=== PATIENT | male | born 1995 | race Caucasian/White ===

== ENCOUNTER 2018-08-09 11:50 | Emergency (ER) | payer OTHER, BC ==
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
--- NOTE | 2018-08-09 12:40 | CT ---
Head CT Technique: Multiple axial sections through the brain were obtained. Intravenous contrast was not utilized. Comparison: No prior intracranial imaging is available. Findings: Ventricles along with basal cisterns and sulci over convexities are within normal limits. Slightly prominent cisterna magna is seen which is a normal variant. No evidence of intracranial hemorrhage. No midline shift or mass effect is seen. Bone window settings were reviewed which shows no acute calvarial abnormality. Visualized sinuses are clear. Impression: 1. Nothing acute is appreciated on noncontrast head CT exam. Diagnostic code #2
== END 2018-08-09 13:07 | disposition home or self-care (01) ==
LOC: JD.ED 11:50
DX: S06.0X0A Concussion without loss of consciousness, initial encounter (principal); S30.0XXA Contusion of lower back and pelvis, initial encounter; S70.12XA Contusion of left thigh, initial encounter; V89.2XXA Person injured in unspecified motor-vehicle accident, traffic, initial encounter
CPT/HCPCS: 70450; 70450-26; 99282; 99284-25

== ENCOUNTER 2019-05-13 19:41 | Emergency (ER) | payer BC ==
--- NOTE | 2019-05-13 20:02 | EDM.PDOC ---
ED HPI GENERAL MEDICAL PROBLEM - General Chief Complaint: Lower Extremity Injury/Pain Stated Complaint: RIGHT LEG HURTS Time Seen by Provider: 05/13/19 19:59 - History of Present Illness INITIAL COMMENTS - FREE TEXT/NARRATIVE: 23-year-old male presents emergency room with right leg pain. Is really got sore Monday. Monday he was climbing into a bunk on a trailer and felt some unusual but didn't pay much attention to it when he awoke Monday he seemed to have some pretty significant discomfort on the inside of his leg from below to just above his knee. Patient has not had problems with blood clots in the past no family history of deep vein thrombosis or PE. The patient has not had the knee problems in the past. Right Leg Pain Score (Numeric/FACES): 6 - Related Data Allergies Allergy/AdvReac Type Severity Reaction Status Date / Time No Known Allergies Allergy Verified 05/13/19 19:49 Home Meds: Home Meds Naproxen Sodium 550 mg PO Q12H #30 tablet 05/13/19 [Rx] Past Medical History - Past Health History Medical/Surgical History: Denies Medical/Surgical History Musculoskeletal History: Reports: Other (See Below) Other Musculoskeletal History: r thumb surgery - Past Surgical History HEENT Surgical History: Reports: Adenoidectomy, Oral Surgery, Tonsillectomy Social & Family History - Tobacco Use Smoking Status *Q: Never Smoker Second Hand Smoke Exposure: No - Caffeine Use Caffeine Use: Reports: Coffee, Soda - Recreational Drug Use Recreational Drug Use: No - Living Situation & Occupation Living situation: Reports: Single Occupation: Employed Review of Systems - Review of Systems Review Of Systems: See Below Constitutional: Reports: No Symptoms Respiratory: Reports: No Symptoms Cardiovascular: Reports: No Symptoms GI/Abdominal: Reports: No Symptoms ED EXAM, GENERAL - Physical Exam Exam: See Below Exam Limited By: No Limitations General Appearance: Alert, No Apparent Distress Respiratory/Chest: No Respiratory Distress, Lungs Clear, Normal Breath Sounds Cardiovascular: Normal Peripheral Pulses, Regular Rate, Rhythm, No Edema GI/Abdominal: Normal Bowel Sounds, Soft, Non-Tender Extremities: Other (Semination of the right leg shows swelling around the knee no significant redness no warmth noted. His tenderness is on the medial aspect over the medial collateral ligament of the knee the lower two thirds of the lower leg are nontender with palpation and the upper two thirds of the thigh is nontender with palpation. The tenderness seems to be localized to the medial aspect. Knee examination shows an intact ACL the MCL is very tender especially with a little bit of strain but because of the discomfort I couldn't adequately test for laxity meniscal testing is restricted because of pain LCL appears to be okay) Course - Vital Signs Last Recorded V/S: Last Vital Signs Temp 36.1 C 05/13/19 19:49 Pulse 104 H 05/13/19 19:49 Resp 15 05/13/19 19:49 BP 155/92 H 05/13/19 19:49 Pulse Ox 96 05/13/19 19:49 - Orders/Labs/Meds Orders: Active Orders 24 hr Category Date Time Status Knee 3V Rt [CR] Stat Exams 05/13/19 20:18 Taken Labs: Laboratory Tests 05/13/19 Range/Units 20:27 D-Dimer, Quantitative < 0.19 L (0.19-0.50) mg/L - Re-Assessments/Exams Free Text/Narrative Re-Assessment/Exam: 05/13/19 20:46 X-ray examination of the knee shows no acute fracture dislocations Some fluid along the medial aspect the knee 05/13/19 21:25 D-dimer negative we'll discharge patient with crutches he will not tolerate a knee immobilizer as he cannot fully extend his knee Departure - Departure Time of Disposition: 21:26 Disposition: Home, Self-Care 01 Clinical Impression: Medial collateral ligament sprain of knee - Discharge Information Prescriptions: Naproxen Sodium 550 mg PO Q12H #30 tablet Referrals: PCP,None [Primary Care Provider] - Bandar Lancaster MD [Physician] - Forms: ED Department Discharge Additional Instructions: Return to the emergency room with any questions problems or worsening symptoms. Use the crutches to help to get around. Take the Naprosyn twice daily with meals. Use the hydrocodone for pain one or 2 every 4-6 hours as needed your given #20 from the machine out in the waiting room. After using this medication allow yourself 12 hours before driving or returning to work. Follow-up with Dr. Lancaster as they can work you in. Call in the morning to schedule an appointment. - My Orders Last 24 Hours: My Active Orders 05/13/19 20:18 Knee 3V Rt [CR] Stat - Assessment/Plan Last 24 Hours: My Active Orders 05/13/19 20:18 Knee 3V Rt [CR] Stat
--- NOTE | 2019-05-14 07:06 | CR ---
Right knee: AP, lateral and sunrise patellar views of the right knee were obtained. Mild medial joint space narrowing is seen. Lateral joint space is preserved. Patellofemoral joint is maintained. Joint effusion is seen. Impression: 1. Mild medial joint space narrowing and joint effusion. 2. No additional abnormality is appreciated on right knee exam. Diagnostic code #3
== END 2019-05-13 21:55 | disposition home or self-care (01) ==
LOC: JD.ED 19:41
DX: S83.411A Sprain of medial collateral ligament of right knee, initial encounter (principal); X50.9XXA Other and unspecified overexertion or strenuous movements or postures, initial encounter; Y93.39 Activity, other involving climbing, rappelling and jumping off
CPT/HCPCS: 36415; 73562-26-RT; 73562-RT; 85379; 99283; 99283-25

== ENCOUNTER 2021-01-19 12:43 | Emergency (ER) | payer BC ==
[2021-01-19] MEDS ORDERED: Lidocaine 1% 10 ML MDV INJECT ONE (15:23)
--- NOTE | 2021-01-19 15:24 | EDM.PDOC ---
ED HPI GENERAL MEDICAL PROBLEM - General Chief Complaint: Upper Extremity Injury/Pain Stated Complaint: RT ELBOW SWELLING Time Seen by Provider: 01/19/21 15:15 Source of Information: Reports: Patient History Limitations: Reports: No Limitations - History of Present Illness INITIAL COMMENTS - FREE TEXT/NARRATIVE: 25-year-old male presents to the ED with continuous swelling of his right olecranon bursa and increasing pain as of late. He states it started in late October or early November he fell and banged on a concrete surface. Patient has been taking anti-inflammatories intermittently for pain relief. States it somewhat better in the mornings and worse by the end of the day when he is finished work. He is also aware of an area that feels like a chip or broken piece floating around in the bursa which is exquisitely painful when compressed on a hard surface such as a desk etc. Onset: Other Onset Date: 11/20/20 (He believes his initial injury was around November 20 but he cannot remember for sure) Duration: Week(s):, Chronic, Getting Worse (Increased pain and swelling as of late. Denies reinjuring the area.) Location: Reports: Upper Extremity, Right (Marked swelling over the right elbow for over 2 months.) Quality: Reports: Ache, Throbbing, Other (Occasional sharp stabbing pain if he puts his elbow on the wrong surface.) Severity: Moderate Improves with: Reports: Rest Worsens with: Reports: None Context: Reports: Trauma (Suffered a fall in late October early November and injured his right elbow. Subsequently developed atraumatic olecranon effusion which has been persistent ever since that time.). 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 [No Known Home Meds] 01/19/21 [History] Past Medical History - Past Health History Medical/Surgical History: Denies Medical/Surgical History Musculoskeletal History: Reports: Fracture Other Musculoskeletal History: r thumb surgery - Past Surgical History HEENT Surgical History: Reports: Adenoidectomy, Oral Surgery, Tonsillectomy Musculoskeletal Surgical History: Reports: Other (See Below) Other Musculoskeletal Surgeries/Procedures:: r thumb surgery Social & Family History - Tobacco Use Tobacco Use Status *Q: Never Tobacco User - Caffeine Use Caffeine Use: Reports: Coffee, Soda - Recreational Drug Use Recreational Drug Use: No - Living Situation & Occupation Living situation: Reports: Single Occupation: Employed Review of Systems - Review of Systems Review Of Systems: See Below Constitutional: Reports: No Symptoms Eyes: Reports: No Symptoms Ears: Reports: No Symptoms Nose: Reports: No Symptoms Mouth/Throat: Reports: No Symptoms Respiratory: Reports: No Symptoms Cardiovascular: Reports: No Symptoms GI/Abdominal: Reports: No Symptoms Genitourinary: Reports: No Symptoms Musculoskeletal: Reports: Other (Chronic swelling right elbow for couple of months.) Skin: Reports: No Symptoms Neurological: Reports: No Symptoms Psychiatric: Reports: No Symptoms ED EXAM, GENERAL - Physical Exam Exam: See Below Exam Limited By: No Limitations General Appearance: Alert, WD/WN, No Apparent Distress, Other Extremities: Other (On examination of the right elbow patient has an obvious fairly large olecranon bursa likely traumatic in origin. I cannot palpate any floating debris within the bursa.) Neurological: Alert, Oriented, CN II-XII Intact, Normal Cognition, Normal Gait Psychiatric: Normal Affect, Normal Mood Course - Vital Signs Last Recorded V/S: Last Vital Signs Temp 36.4 C 01/19/21 13:03 Pulse 65 01/19/21 13:03 Resp 16 01/19/21 13:03 BP 129/91 H 01/19/21 13:03 Pulse Ox 99 01/19/21 13:03 - Orders/Labs/Meds Meds: Medications Discontinued Medications Generic Name Dose Route Start Last Admin Trade Name Freq PRN Reason Stop Dose Admin Lidocaine HCl 10 ml 01/19/21 15:23 01/19/21 16:26 Lidocaine 1% 10 Ml Mdv INJECT 01/19/21 15:24 10 ml ONETIME ONE Administration Triamcinolone Acetonide 40 mg 01/19/21 16:00 01/19/21 16:26 Triamcinolone Acetonide 40 Mg/Ml 1 Ml Sdv INJECT 01/19/21 16:01 40 mg ONETIME ONE Administration - Radiology Interpretation Free Text/Narrative:: 25-year-old male presents to the ED with a chronic swelling of his right elbow since fall either late October or early November. He believes it was around November 20. He members tripping and falling and landing on concrete surface on his right elbow. Subsequently developed swelling in this area which is never dissipated. States recently it seems to be getting more painful he is aware of floating- like debris within the right olecranon bursa that is painful. Patient is questioning a chip fracture. Patient reassured that most the time this is actually debris from bursal scarring but is very tender to touch due to nerve supply to the bursa. Patient has been taking Tylenol and Motrin on intermittent basis for the bursa but feels it is getting larger as of late. He feels it might be aggravated by his work which sometimes rib involves repetitive use of his arms. On examination he has a fairly large right olecranon bursitis. Nurses have ordered an x-ray of the right elbow which proved to be negative for any bony abnormalities of the olecranon process or true fluid within the joint. Plan to anesthetize the area with 1% lidocaine and remove the fluid with an 18- gauge needle and then inject 40 mg of Kenalog into the bursa. - Re-Assessments/Exams Free Text/Narrative Re-Assessment/Exam: 01/19/21 16:15: Anesthetized the right olecranon bursa with 1% lidocaine. Removed approximately 35 mils of sanguinous material from the right olecranon bursa. Was able to instill 40 mg of Kenalog into the bursa. Patient tolerated the procedure very well. Band-Aid applied over injection site. He will follow- up if recurrence of the bursitis occurs in 3 to 4 weeks time. Departure - Departure Time of Disposition: 16:15 Disposition: Home, Self-Care 01 Condition: Fair Clinical Impression: Olecranon bursitis of right elbow - Discharge Information *PRESCRIPTION DRUG MONITORING PROGRAM REVIEWED*: Not Applicable *COPY OF PRESCRIPTION DRUG MONITORING REPORT IN PATIENT GIOVANNY: Not Applicable Instructions: Elbow Bursitis, [id number] Referrals: PCP,None [Primary Care Provider] - Forms: ED Department Discharge Additional Instructions: Evaluation in the emergency room today in regards to chronic swelling of your right elbow involving the olecranon bursa. You do remember falling and banging up your elbow prior to the development of the swelling of your right elbow. An x-ray of the right elbow was carried out but is within normal limits showing no bony injury. The painful area that you feel is actually portions of the bursa that usually are scarred together and feel like a floating lump within the fluid. It also has many nerve endings and it is not very tender to touch or to bang on a hard surface usually for about a year. In the ED we removed approximately 35 mils of sanguinous or bloody fluid indicating this was definitely a traumatic effusion. Injected the elbow with 40 mg of Kenalog to reduce the inflammation and fluid production by the bursa. Elbow may become more painful over the next 12 to 24 hours requiring Motrin 600 mg every 6 hours. Usually over the next 72 hours swelling and pain start to improve dramatically. You would need review if the elbow swells up again in approximately 3 weeks time. Sepsis Event Note (ED) - Evaluation Sepsis Screening Result: No Definite Risk - Focused Exam Vital Signs: Vital Signs Temp Pulse Resp BP Pulse Ox 01/19/21 13:03 36.4 C 65 16 129/91 H 99 Arthrocentesis - Arthrocentesis Arthrocentesis Indication: fluid aspiration, other (Medic effusion right olecranon bursa) Location: right Prep: CDC/MBT Guidelines, Sterile Drapes, Chlorhexidine Local anesthesia: lidocaine 1 % Local anesthesia volume: 3cc Needle: 18 gauge Fluid: bloody (Bloody aspirate) Volume of fluid removed (mls): 35 Medication Instilled: lidocaine mls: (3), cortisone mgs: (40 mg of Kenalog instilled into the bursa.) Complications: No Dressing: other (Ended)
--- NOTE | 2021-01-19 15:37 | CR ---
Right elbow: 4 views of the right elbow were obtained. Comparison: No prior elbow study is available. Diffuse soft tissue swelling is noted posteriorly most likely within the olecranon bursa. Joint spaces are preserved. No acute fracture or other bony abnormality is appreciated. Impression: 1. Posterior soft tissue swelling most likely representing fluid within a distended olecranon bursa. 2. No acute osseous abnormality is appreciated. Diagnostic code #3
[2021-01-19] MEDS ORDERED: Triamcinolone Acetonide 40 MG/ML 1 ML SDV INJECT ONE (16:00)
== END 2021-01-19 16:26 | disposition home or self-care (01) ==
LOC: JD.ED 12:43
DX: M70.21 Olecranon bursitis, right elbow (principal)
CPT/HCPCS: 20610; 73080; 99283; J3301

== ENCOUNTER 2024-02-17 16:48 | Emergency (ER) | payer BC ==
[2024-02-17] MEDS: Ketorolac 60 MG/2 ML SDV IM ONE (20:53)
== END 2024-02-17 21:09 | disposition home or self-care (01) ==
LOC: JD.ED 16:48
DX: M25.561 Pain in right knee (principal)
CPT/HCPCS: 73564; 96372; 99283; J1885; 99282

== ENCOUNTER 2024-08-28 03:28 | Observation (INO) | payer BC, OTHER ==
[2024-08-28] MEDS ORDERED: Sodium Chloride 0.9% 10 ML Syringe FLUSH PRN (03:33)
[2024-08-28] MEDS: HYDROmorphone 0.5 MG/0.5 ML Syringe ONE ×2 (03:35→04:31)
[2024-08-28 03:43] LABS: BASOPHILS ABSOLUTE AUTO 0.1 K/mm3 (0.0-0.2); BASOPHILS PERCENT AUTO 0.4 % (0.0-1.0); EOSINOPHILS ABSOLUTE AUTO 0.2 K/mm3 (0.0-0.4); EOSINOPHILS PERCENT AUTO 1.3 % (0.0-6.0); HEMATOCRIT 44.7 % (42.0-52.0); IMMATURE GRAN ABSOLUTE AUTO 0.03 K/mm3 (0.00-0.05); IMMATURE GRAN PERCENT AUTO 0.2 % (0.0-0.4); LYMPHOCYTES ABSOLUTE AUTO 4.5 K/mm3 (1.0-4.8); LYMPHOCYTES PERCENT AUTO 37.6 % (24.0-44.0); MEAN CORPUSCULAR HEMOGLOBIN 28.8 pg (28.0-32.0); MEAN CORPUSCULAR HGB CONC 33.6 g/dl (32.0-36.0); MEAN CORPUSCULAR VOLUME 85.8 fl (83.0-99.0); MEAN PLATELET VOLUME 11.3 fl (9.4-12.4); MONOCYTES ABSOLUTE AUTO 0.6 K/mm3 (0.0-0.8); MONOCYTES PERCENT AUTO 5.3 % (0.0-8.0); NEUTROPHILS ABSOLUTE AUTO 6.6 K/mm3 (1.8-7.7); NEUTROPHILS PERCENT AUTO 55.2 % (41.0-71.0); PLATELET COUNT,PLT 246 K/mm3 (150-400); RED BLOOD CELL COUNT 5.21 M/mm3 (4.52-5.90); WHITE BLOOD CELL COUNT,WBC 12.03 K/mm3 (3.9-11.3)
[2024-08-28 04:00] LABS: INR 1.08; PROTHROMBIN TIME 11.4 SECONDS (9.7-12.0)
[2024-08-28 04:01] LABS: PTT,PARTIAL THROMBOPLSTIN TIME 24.8 SECONDS (21.7-31.4)
[2024-08-28 04:08] LABS: A/G RATIO 1.1 (1-2); ALBUMIN 4.1 g/dl (3.4-5.0); ANION GAP 13.7 (5-15); BILIRUBIN TOTAL 0.3 mg/dL (0.2-1.0); BUN/CREATININE RATIO 13.6 (14-18); CALCIUM 8.7 mg/dL (8.5-10.1); CREATININE 1.1 mg/dL (0.7-1.3); EST CRCL DRUG DOSING (CG) 107.78 mL/min; ETHANOL BLOOD MEDICAL 0.24 gm% (0.00); POTASSIUM,K 3.7 mEq/L (3.5-5.1); PROTEIN TOTAL,TP 7.7 g/dl (6.4-8.2)
[2024-08-28] MEDS: LORazepam 2 MG/ML SDV IVPUSH ONE ×2 (04:21→05:10)
[2024-08-28] MEDS: LORazepam 2 MG/ML SDV ONE (04:22)
[2024-08-28] MEDS: Iopamidol 612 MG/ML 100 ML Bottle IVPUSH ONE (04:45)
[2024-08-28] MEDS: Sodium Chloride 0.9% 10 ML Syringe FLUSH ONE (04:45)
[2024-08-28 05:04] LABS: BARBITURATE SCREEN,URINE NEGATIVE (CUTOFF=200); BENZODIAZEPINES SCREEN,URINE NEGATIVE (CUTOFF=150); BUPRENORPHINE SCREEN,URINE NEGATIVE (CUTOFF=10); METHADONE SCREEN, URINE NEGATIVE (CUT0FF=200); METHAMPHETAMINES SCREEN, URINE NEGATIVE (CUTOFF=500); OXYCODONE SCREEN,URINE NEGATIVE (CUT0FF=100); THC SCREEN,URINE 20 NG/ML NEGATIVE (CUTOFF=50)
[2024-08-28 05:17] LABS: AMPHETAMINES SCREEN, URINE NEGATIVE (CUTOFF=500)
[2024-08-28] MEDS: Thiamine 200 MG/2 ML MDV IM ONE (06:09)
[2024-08-28] MEDS: HYDROmorphone 0.5 MG/0.5 ML Syringe IVPUSH PRN (06:09)
[2024-08-28] MEDS: LORazepam 2 MG/ML SDV IM ONE (06:10)
[2024-08-28] MEDS: D5 1/2 NS w/ 20 mEq/L KCl 1,000 ML IV SCH (06:11)
[2024-08-28] MEDS ORDERED: Propofol 200 MG/20 ML SDV ONE (07:07)
[2024-08-28] MEDS ORDERED: Lidocaine 2% 5 ML SDV ONE (07:09)
[2024-08-28] MEDS ORDERED: Ropivacaine 0.5% 5 MG/ML 30 ML SDV ONE (07:09)
[2024-08-28] MEDS ORDERED: Midazolam 1 MG/ML 2 ML SDV ONE (07:16)
[2024-08-28] MEDS ORDERED: fentaNYL 100 MCG/2 ML SDV ONE ×2 (07:16→09:08)
[2024-08-28] MEDS ORDERED: Dexamethasone 4 MG/ML 5 ML MDV ONE (08:38)
[2024-08-28] MEDS ORDERED: ceFAZolin 2 GM Vial ONE (08:38)
[2024-08-28] MEDS ORDERED: Ondansetron 4 MG/2 ML SDV ONE (08:38)
[2024-08-28] MEDS ORDERED: Ondansetron 4 MG/2 ML SDV IVPUSH PRN (11:05)
[2024-08-28] MEDS ORDERED: HYDROmorphone 0.5 MG/0.5 ML Syringe IVPUSH PRN (11:05)
[2024-08-28] MEDS ORDERED: fentaNYL 100 MCG/2 ML SDV IVPUSH PRN (11:05)
[2024-08-28] MEDS: Ketorolac 30 MG/ML SDV IVPUSH PRN (13:21)
[2024-08-28] MEDS: Acetaminophen/HYDROcodone 325-5 MG Tab PO PRN (14:48)
[2024-08-28] MEDS: Metoprolol Tartrate 5 MG/5 ML SDV IVPUSH PRN (15:39)
[2024-08-28] MEDS ORDERED: Cyclobenzaprine 10 MG Tab PO PRN (16:30)
[2024-08-28] MEDS ORDERED: Naloxone 0.4 MG/ML SDV IVPUSH PRN (16:31)
[2024-08-28] MEDS: Sodium Chloride 0.9% 1,000 ML IV SCH (20:01)
[2024-08-28] MEDS: Acetaminophen Soln 650 MG/20.3 ML UD Cup PO ONE (20:17)
[2024-08-29] MEDS: Acetaminophen 325 MG Tab PO PRN (02:29)
[2024-08-29] MEDS: Acetaminophen/HYDROcodone 325-5 MG Tab PO PRN (04:39)
== END 2024-08-29 11:02 | disposition home or self-care (01) ==
LOC: JD.ED 03:28 → JD.SDS 06:37 → JD.MS 17:34 → JD.SDS 17:34 → UNDOFXSDCRRACCOM 18:49 → JD.TELEMED 18:49 → OBSVTOIN 18:50 → INTOOBSV 18:50 → EEVIPCON 18:50 → JD.MS 18:50
PROVIDERS: ADMIT Family Medicine; ATTEND Family Medicine
DX: S52.201A Unspecified fracture of shaft of right ulna, initial encounter for closed fracture (principal); S53.004A Unspecified dislocation of right radial head, initial encounter; F10.129 Alcohol abuse with intoxication, unspecified; E86.0 Dehydration; Z79.899 Other long term (current) drug therapy; V49.3XXA Car occupant (driver) (passenger) injured in unspecified nontraffic accident, initial encounter
CPT/HCPCS: 24605; 25545; 36415; 70450; 71045; 71260; 72125; 72128; 72131; 72170; 73060; 73090; 74177; 76000; 80053; 80306; 80307; 83690; 84484; 85025; 85610; 85730; 93005; A9270; C1713; J0690; J1100; J1885; J2003; J2060; J2250; J2405; J2795; J3010; J3411; J3480; J3490; J7030; Q9967; J2704